=== PATIENT | female | born 1985 | race Hispanic/Latino ===

== ENCOUNTER 2021-10-19 21:22 | Emergency (ER) | payer OTHER ==
[~2021-10-19] VITALS: Ht 160 cm; Wt 68.0 kg
[2021-10-19 21:45] LABS: BASOPHILS % (AUTO) 0.6 % (0.0-5.0); HEMATOCRIT 41.6 % (36-48); LYMPHOCYTES % (AUTO) 16.8 % (21.0-51.0); MEAN CORPUSCULAR HEMOGLOBIN 29.6 pg (27.0-33.0); MEAN CORPUSCULAR HGB CONC 33.9 g/dL (32.0-36.0); MEAN CORPUSCULAR VOLUME 87.2 fL (79-99); MONOCYTES % (AUTO) 4.4 % (3.0-13.0); PLATELET COUNT (AUTO) 299 K/uL (130-400); RED BLOOD CELL COUNT(AUTO) 4.77 MIL/uL (4.00-5.50); RED CELL DISTRIBUTION WIDTH 12.4 % (11.0-15.5); WHITE BLOOD COUNT (AUTO) 12.4 K/uL (4.8-10.8)
[2021-10-19 21:51] LABS: APPEARANCE,URINE SL CLOUDY (CLEAR); BILIRUBIN,URINE NEGATIVE (NEGATIVE); COLOR,URINE YELLOW (YELLOW); GLUCOSE, URINE (UA) NEGATIVE (NEGATIVE); KETONES,URINE NEGATIVE (NEGATIVE); LEUKOCYTE ESTERASE ,URINE LARGE (NEGATIVE); NITRATE,URINE NEGATIVE (NEGATIVE); OCCULT BLOOD,URINE TRACE-INTACT (NEGATIVE); PH,URINE 6.5 (5.0-8.0); PROTEIN,URINE NEGATIVE (NEGATIVE)
[2021-10-19 22:01] LABS: INR 0.94 (0.85-1.15); PROTHROMBIN TIME 10.3 SEC (9.6-11.6)
[2021-10-19 22:02] LABS: PARTIAL THROMBOPLASTIN TIME 27.6 SEC (26.3-35.5)
[2021-10-19 22:03] LABS: BACTERIA,URINE Few /HPF (None Seen); POTASSIUM 3.4 mmol/L (3.5-5.1)
[2021-10-19 22:04] LABS: RBC,URINE 0-1 /HPF (0-1); YEAST,URINE BUDDING Rare /HPF (None Seen)
[2021-10-19 22:08] LABS: TOTAL PROTEIN, SERUM 7.3 g/dL (6.0-8.3)
[2021-10-19] MEDS ORDERED: PANTOPRAZOLE 40 MG/VIAL IVP ONE (22:30)
[2021-10-19 23:28] VITALS: BP 135/81
[2021-10-19] MEDS ORDERED: FLUCONAZOLE 100 MG TAB PO ONE (23:30)
== END 2021-10-19 23:37 | disposition home or self-care (01) ==
LOC: EDH 21:22
DX: B37.9 Candidiasis, unspecified (principal); R19.5 Other fecal abnormalities; Z87.19 Personal history of other diseases of the digestive system
CPT/HCPCS: 99283; 96374; 82270; 80053; 83690; 85025; 85610; 85730; 86850; 86900; 86901; 87088; 81001; 81025; 36415; C9113

== ENCOUNTER → 2023-02-18 | Outpatient (CLI) | payer OTHER ==
[~2023-02-18] MED LIST: PANT40TA55 PO
== END | disposition home or self-care (01) ==
LOC: RAH 08:23
PROVIDERS: ATTEND Internal Medicine Gastroenterology
DX: R10.10 Upper abdominal pain, unspecified (principal)
CPT/HCPCS: 76700

== ENCOUNTER 2023-09-08 11:16 | Emergency (ER) | payer OTHER ==
[~2023-09-08] VITALS: Ht 160 cm; Wt 66.7 kg
[2023-09-08 11:49] LABS: BASOPHILS # (AUTO) 0.05 K/uL (0.00-0.20); BASOPHILS % (AUTO) 0.3 % (0.0-5.0); EOSINOPHILS # (AUTO) 0.08 K/uL (0.00-0.70); EOSINOPHILS % (AUTO) 0.5 % (0.0-8.0); HEMATOCRIT 43.8 % (36-48); IMMATURE GRANULOCYTE ABSOLUTE 0.06 K/uL (0-1); LYMPHOCYTES # (AUTO) 1.7 K/uL (1.0-4.8); MEAN CORPUSCULAR HEMOGLOBIN 29.6 pg (27.0-33.0); MEAN CORPUSCULAR VOLUME 87.1 fL (79-99); MONOCYTES # (AUTO) 0.6 K/uL (0.1-1.0); MONOCYTES % (AUTO) 3.7 % (3.0-13.0); NEUTROPHILS # (AUTO) 12.6 K/uL (1.8-7.7); NEUTROPHILS % (AUTO) 84.1 % (40.0-77.0); PLATELET COUNT (AUTO) 280 K/uL (130-400); RED BLOOD CELL COUNT(AUTO) 5.03 MIL/uL (4.00-5.50); RED CELL DISTRIBUTION WIDTH 13.1 % (11.0-15.5)
[2023-09-08 11:58] LABS: CREATININE 0.8 mg/dL (0.5-1.0); POTASSIUM 3.9 mmol/L (3.5-5.1)
[2023-09-08] MEDS: 0.9%NACL 1000ML 1,000 ML IV ONE (12:15)
[2023-09-08 12:39] VITALS: BP 133/81; PULSE 91; RESP 18; O2SAT 100
[2023-09-08 12:54] LABS: HCG,QUALITATIVE URINE NEGATIVE (NEGATIVE)
[2023-09-08 12:55] LABS: APPEARANCE,URINE CLOUDY (CLEAR); BILIRUBIN,URINE NEGATIVE (NEGATIVE); COLOR,URINE YELLOW (YELLOW); GLUCOSE, URINE (UA) NEGATIVE (NEGATIVE); KETONES,URINE NEGATIVE (NEGATIVE); LEUKOCYTE ESTERASE ,URINE 75 Leu/uL (NEGATIVE); NITRATE,URINE NEGATIVE (NEGATIVE); OCCULT BLOOD,URINE MODERATE (NEGATIVE); PH,URINE 5.5 (5.0-8.0); PROTEIN,URINE 20 mg/dL (NEGATIVE); UROBILINOGEN,URINE 0.2 mg/dL (0.2-1.0)
[2023-09-08 12:56] LABS: ADD UA MICROSCOPIC YES
[2023-09-08 12:57] LABS: BACTERIA,URINE RARE /HPF (None Seen); MUCUS,URINE RARE LPF (None Seen); RBC,URINE 26-50 /HPF (0-1); SQUAMOUS EPITHELIAL CELL,UR MOD /HPF (0-2)
[2023-09-08] MEDS: CEFTRIAXONE 1G VIAL IVPB ONE (15:17)
== END 2023-09-08 15:43 | disposition home or self-care (01) ==
LOC: EDH 11:16
DX: K42.9 Umbilical hernia without obstruction or gangrene (principal); R11.2 Nausea with vomiting, unspecified; Z98.890 Other specified postprocedural states
CPT/HCPCS: 99285; 74176; 96374; 96361; 82550; 80048; 83690; 85025; 87088; 81001; 81025; 36415; J7030; J0696

== ENCOUNTER 2024-07-28 17:08 | Emergency (ER) | payer OTHER ==
[~2024-07-28] VITALS: Ht 160 cm; Wt 68.0 kg
[2024-07-28 17:12] VITALS: BP 152/91; PULSE 83; RESP 16; TEMP 98.3
--- NOTE | 2024-07-28 17:31 | NUR ---
POISON CONTROL NOTIFIED CASE #[id number] NO ADDITIONAL RECOMMENDATION MADE AT THIS TIME
--- NOTE | 2024-07-28 17:41 | ERN ---
General Chief Complaint: Other Problems Stated Complaint: OTHER Time Seen by MD: 17:15 Time Seen by Midlevel: 17:15 Source: patient History of Present Illness Initial Comments 28-year-old female who presents to the emergency department for wellness examination. Patient reports she took 1 tsp of baking soda for acid reflux, and is concerned she took too much. Reports she was burping afterwards which now resolved. Denies any abdominal pain, nausea, vomiting, chest pain, SOB or fur ther associated symptoms. Allergies: Coded Allergies: No Known Drug Allergies (Unverified Allergy, Unknown, 10/19/21) Home Meds Active Scripts Pantoprazole Sodium (Protonix) 40 Mg Ectab, 40 MG PO BID, #60 TAB.EC Prov:FE HAMILTON MD 03/22/22 Past Medical History Past Medical History: GERD, Other Medical History Other: BARRETTS ESOPHAGITIS Past Surgical History: None Social History Social History: Negative, Lives with family Female( History) History: Not Applicable ROS Dictation Constitutional: Negative for fever,chills, and weight loss Eyes: Negative for injury, pain,redness, and discharge ENT: Negative for injury,pain or swelling Cardiovascular: Negative for chest pain, palpitations, and edema Respiratory: Negative for shortness of breath, cough, and wheezing, Abdomen/GI: Negative for abdominal pain, nausea, vomiting, diarrhea, and constipation Back: Negative for injury and pain : Negative for painful urination, bleeding or discharge MS/Extremity: Negative for injury and deformity Skin: Negative for rash, and discoloration Neuro: Negative for headache, weakness, numbness, tingling, and seizure Psych: Negative for suicide ideation, homicidal ideation, and hallucinations Physical Exam Physical Exam Dictation General: awake, alert, no acute distress Head/Face: Normocephalic, atraumatic Eyes: PERRL, EOMI, normal conjunctiva ENT: oral cavity clear, oral mucosa moist Neck: Supple, normal range of motion Cardiovascular: RRR, normal S1/S2 Respiratory: CTAB, no respiratory distress Abdomen: Soft, non-tender, non-distended Skin: Warm, dry, normal turgor, no rash MS/Extremity: Pulses equal, no cyanosis, neurovascular intact, FROM Neuro: COAx4, GCS 15, strength 5/5, CN 2-12 intact, normal cerebellar exam, normal gait Psych: Normal behavior, mood, and affect normal MDM MDM: Differential diagnosis: Acid reflux, overdose, Rationale: 28-year-old female who presents to the emergency department for wellness examination. Patient reports she took 1 tsp of baking soda for acid reflux, and is concerned she took too much. Reports she was burping afterwards which now resolved. Denies any abdominal pain, nausea, vomiting, chest pain, SOB or further associated symptoms. Poison control notified case #[id number], due to patient being asymptomatic no further recommendations were given. Patient was advised to follow up with PCP. Return to the emergency department if any worsening symptoms. Patient verbalized understanding. Patient stable for discharge. There are no social concerns with this patient. I independently interpreted the test that were performed, results were reviewed by me and considered findings on radiology if ordered. Medical management and examination interpretation discussions were had by me with other qualified healthcare professionals as indicated for the patient's care. ED Course Vital Signs Date Time Temp Pulse Resp B/P (MAP) Pulse Ox O2 Delivery O2 Flow Rate FiO2 07/28/24 17:12 98.2 83 16 152/91 100 Room Air DX & DISP Disposition: Discharge Departure Impression: Primary Impression: Wellness examination Condition: Stable Additional Instructions: Discharge home. Rest. Follow up with primary care DrMargie in 24 hours. Return to the ER for any acute changes or worsening symptoms. If any medications were prescribed take as directed. Okay to continue home medications unless otherwise discussed during your visit in the emergency room today. Patient was also advised to follow-up with primary care physician in 1 to 2 days for continued monitoring. Referrals: HIRO TOLENTINO (PCP) I performed the substantive portion of the visit. I have reviewed and personally made and approve the management plan that is documented in the notes by myself or the JERROD. I acknowledge full responsibility for the patient's management plan. REINALDO ACE July 28, 2024 17:41
--- NOTE | 2024-07-28 17:58 | NUR ---
PATIENT LOOKED FOR IN [facility]ST TRACK AND OUT IN LOBBY. PATIENT NOT FOUND
--- NOTE | 2024-07-28 18:02 | NUR ---
PATIENT CALLED TO [facility] AND LOOKED FOR IN LOBBY X3
== END 2024-07-28 18:03 | disposition left against medical advice (07) ==
LOC: EDH 17:08
DX: K21.9 Gastro-esophageal reflux disease without esophagitis (principal); Z79.899 Other long term (current) drug therapy; Z87.19 Personal history of other diseases of the digestive system
CPT/HCPCS: 99281